=== PATIENT | female | born 1965 | race Native Hawaiian/Other Pacific Islander ===

== ENCOUNTER 2016-06-10 16:19 | Emergency (ER) | payer SELFPAY ==
[~2016-06-10 16:19] MED LIST: ADVA250A INH; ALBU0.08 NEB; CARI1TAB45 PO; GABA800T PO; MSIR15 PO; NYST1000 SWISH-SWAL; PRED-503 PO; VENTAER INH; ZITHTAB PO
[2016-06-10 16:22] VITALS: BP 173/93; PULSE 83; RESP 14; TEMP 98.1; O2SAT 97
[2016-06-11] MEDS ORDERED: PRED-503 PO (16:06)
[2016-06-11] MEDS ORDERED: ERYTOIN10 EACH EYE (16:06)
[2016-06-11] MEDS ORDERED: ALBU0.08 NEB (16:06)
== END 2016-06-10 16:36 | disposition left against medical advice (07) ==
LOC: NED 16:19
DX: Z53.21 Procedure and treatment not carried out due to patient leaving prior to being seen by health care provider (principal)
CPT/HCPCS: 99281

== ENCOUNTER 2016-06-11 02:36 | Emergency (ER) | payer SELFPAY ==
[~2016-06-11] VITALS: Ht 167.6 cm; Wt 100.0 kg
[2016-06-11 02:38] VITALS: BP 182/98; RESP 18; TEMP 97.8; O2SAT 95
[2016-06-11 04:07] LABS: AUTOMATED NEUTROPHIL # 5.9 TH/MM3 (1.8-7.7); BASOPHIL # 0.1 TH/MM3 (0-0.2); BASOPHIL % 0.5 % (0.0-2.0); EOSINOPHIL # 0.1 TH/MM3 (0-0.4); EOSINOPHIL % 1.4 % (0.0-4.0); HEMATOCRIT 48.5 % (35.0-46.0); HEMO FLAGS DIFF FINAL; LYMPH % 29.6 % (9.0-44.0); LYMPHOCYTE # 2.9 TH/MM3 (1.0-4.8); MEAN CELL VOLUME 88.8 FL (80.0-100.0); MEAN CORPUSCULAR HEMOGLOBIN 30.3 PG (27.0-34.0); MEAN CORPUSCULAR HGB CONC 34.1 % (32.0-36.0); MONO % 8.3 % (0.0-8.0); NEUT % 60.2 % (16.0-70.0); PLATELET COUNT 246 TH/MM3 (150-450); RED BLOOD COUNT 5.46 MIL/MM3 (4.00-5.30); RED CELL DISTRIBUTION WIDTH 12.9 % (11.6-17.2); WHITE BLOOD COUNT 9.8 TH/MM3 (4.0-11.0)
--- NOTE | 2016-06-11 04:14 | PD ---
HPI Chief Complaint: Eye Problems/Injury Time Seen by Provider: 04:06 Travel History International Travel<30 days: No Contact w/Intl Traveler<30days: No Traveled to known affect area: No History of Present Illness HPI 51-year-old white female presents to the emergency department requesting a medication refill. She states that she was prescribed erythromycin for conjunctivitis. She is nearly out of her prescription. She still feels that her eyes are red and irritated. She states that she is no longer having discharge. She states that her eyes originally were red, draining mucoid discharge prior to her initiating the erythromycin ointment. She states that she feels that they're not completely resolved. She is requesting a refill. During her initial evaluation by the nursing staff she admittedly stated that she attempted to overdose on medications earlier this week as well as trying to commit suicide by ingesting penicillin which she felt she was allergic to. She states that she has been staying in the room in [facility]. She is paid up until Sunday. She is not sure what she is going to do after that. She is concerned that she may attempt to harm herself again. She states that she does not like where she is in life. She states that she is at risk of being homeless. She has been selling herself to get money to pay for her room. She also states that her family doesn't like her. She is feeling increasingly depressed and suicidal. She denies any homicidal ideation. The patient admits to prior attempts at toxic ingestion but nothing here recently in the last day or 2. She admits to tobacco, alcohol but denies drugs. She also states that she is concerned that she may have been exposed to possibly hepatitis. She states that she had unprotected intercourse. The patient currently denies any fever or chills. No chest pain or shortness of breath. No nausea or vomiting. No abdominal pain. No vaginal complaints. She does complain of red irritated eyes. No drainage now. She denies any active plan on self-harm but is concerned that she is at risk. [facility] Past Medical History Narrative Medical Diabetes, hypertension, fibromyalgia, depression, COPD Asthma: Yes Depression: Yes Cardiovascular Problems: Yes (HTN) Diabetes: Yes (NO MEDS) Patient Takes Glucophage: No Diminished Hearing: Yes ([place]) Fibromyalgia: Yes Hypertension: Yes Respiratory: Yes (BRONCHITIS, ASTHMA) Tetanus Vaccination: < 5 Years ?: Not Ovarian Cysts: Yes (REMOVAL) Past Surgical History Narrative Surgical , partial hysterectomy Section: Yes (X2) Hysterectomy: Yes Social History Alcohol Use: Yes (RARE) Tobacco Use: Yes (<1 PPD ) Substance Use: No Allergies-Medications (Allergen,Severity, Reaction): Coded Allergies: Penicillin (Verified Allergy, Severe, CANT SPEAK OR MOVE AND LOW BP, 05/26) Sulfa (Verified Allergy, Severe, CAN NOT SPEAK, CAN NOT MOVE, LOW BP, 06/11) Reported Meds & Prescriptions Reported Meds & Active Scripts Active Albuterol Neb (Albuterol Sulfate) 2.5 Mg/3 Ml Neb 2.5 Mg NEB Q4HR NEB PRN Zithromax Z-Ramon (Azithromycin) 250 Mg Dspk 250 Mg PO DIRECTED 500 MG (2 tabs) day 1, then 1 tab days 2-5. Nystatin Liq 100,000 unit/ml Susp 5 Ml SWISH-SWAL QID 7 Days Deltasone (Prednisone) 20 Mg Tab 20 Mg PO TID Reported Ventolin Hfa 18 GM Inh (Albuterol Sulfate) 90 Mcg/Act Aer 2 Puff INH Q4-6H PRN Carisoprodol 250 Mg Tab 250 Mg PO DAILY PRN Morphine IR (Morphine Sulfate) 15 Mg Tab 15 Mg PO DAILY PRN Gabapentin 800 Mg Tab 800 Mg PO DAILY Advair Diskus Inh (Fluticasone-Salmeterol Inh) 250-50 Mcg/Blist Aer 1 Puff INH BID Rinse mouth after use. Review of Systems Except as stated in HPI: all other systems reviewed are Neg Physical Exam Narrative GENERAL: Well-nourished, well-developed patient. SKIN: Warm and dry. HEAD: Normocephalic and atraumatic. EYES: No scleral icterus. Positive bilateral injection but no drainage. Patient has heavy mascara on. ENT: No nasal drainage noted. Mucous membranes pink. Airway patent. NECK: Supple, trachea midline. Moves head freely without obvious discomfort. CARDIOVASCULAR: Regular rate and rhythm without murmurs, gallops, or rubs. RESPIRATORY: Breath sounds equal bilaterally. No accessory muscle use. GASTROINTESTINAL: Abdomen soft, non-tender, nondistended. EXTREMITIES: No cyanosis or edema. BACK: Nontender without obvious deformity. No CVA tenderness. NEURO: Patient is alert and oriented. no sensorimotor deficits. Nonfocal. Normal speech. PSYCH: No delusions. No auditory or visual hallucinations. Data Data Last Documented VS Vital Signs Date Time Temp Pulse Resp B/P Pulse Ox O2 Delivery O2 Flow Rate FiO2 06/11/16 02:38 97.8 18 182/98 95 Room Air Orders Complete Blood Count With Diff (06/11/16 03:34) Comprehensive Metabolic Panel (06/11/16 03:34) Drug Screen, Random Urine (06/11/16 03:34) Alcohol (Ethanol) (06/11/16 03:34) Salicylates (Aspirin) (06/11/16 03:34) Tylenol (Acetaminophen) (06/11/16 03:34) Psych Screen (06/11/16 03:34) Labs Laboratory Tests Test 06/11/16 03:40 White Blood Count 9.8 TH/MM3 Red Blood Count 5.46 MIL/MM3 Hemoglobin 16.5 GM/DL Hematocrit 48.5 % Mean Corpuscular Volume 88.8 FL Mean Corpuscular Hemoglobin 30.3 PG Mean Corpuscular Hemoglobin 34.1 % Concent Red Cell Distribution Width 12.9 % Platelet Count 246 TH/MM3 Mean Platelet Volume 8.5 FL Neutrophils (%) (Auto) 60.2 % Lymphocytes (%) (Auto) 29.6 % Monocytes (%) (Auto) 8.3 % Eosinophils (%) (Auto) 1.4 % Basophils (%) (Auto) 0.5 % Neutrophils # (Auto) 5.9 TH/MM3 Lymphocytes # (Auto) 2.9 TH/MM3 Monocytes # (Auto) 0.8 TH/MM3 Eosinophils # (Auto) 0.1 TH/MM3 Basophils # (Auto) 0.1 TH/MM3 CBC Comment DIFF FINAL Differential Comment Sodium Level 139 MEQ/L Potassium Level 3.6 MEQ/L Chloride Level 101 MEQ/L Carbon Dioxide Level 28.4 MEQ/L Anion Gap 10 MEQ/L Blood Urea Nitrogen 10 MG/DL Creatinine 0.78 MG/DL Estimat Glomerular Filtration 78 ML/MIN Rate Random Glucose 248 MG/DL Calcium Level 8.6 MG/DL Total Bilirubin 0.4 MG/DL Aspartate Amino Transf 9 U/L (AST/SGOT) Alanine Aminotransferase 28 U/L (ALT/SGPT) Alkaline Phosphatase 79 U/L Total Protein 6.9 GM/DL Albumin 3.5 GM/DL Salicylates Level 3.3 MG/DL Urine Opiates Screen POS Acetaminophen Level LESS THAN 2.0 MCG/ML Urine Barbiturates Screen NEG Urine Amphetamines Screen NEG Urine Benzodiazepines Screen NEG Urine Cocaine Screen NEG Urine Cannabinoids Screen NEG Ethyl Alcohol Level LESS THAN 3 MG/DL MDM Medical Decision Making Medical Screen Exam Complete: Yes Emergency Medical Condition: Yes Medical Record Reviewed: Yes Interpretation(s) Laboratory Tests Test 06/11/16 03:40 White Blood Count 9.8 TH/MM3 Red Blood Count 5.46 MIL/MM3 Hemoglobin 16.5 GM/DL Hematocrit 48.5 % Mean Corpuscular Volume 88.8 FL Mean Corpuscular Hemoglobin 30.3 PG Mean Corpuscular Hemoglobin 34.1 % Concent Red Cell Distribution Width 12.9 % Platelet Count 246 TH/MM3 Mean Platelet Volume 8.5 FL Neutrophils (%) (Auto) 60.2 % Lymphocytes (%) (Auto) 29.6 % Monocytes (%) (Auto) 8.3 % Eosinophils (%) (Auto) 1.4 % Basophils (%) (Auto) 0.5 % Neutrophils # (Auto) 5.9 TH/MM3 Lymphocytes # (Auto) 2.9 TH/MM3 Monocytes # (Auto) 0.8 TH/MM3 Eosinophils # (Auto) 0.1 TH/MM3 Basophils # (Auto) 0.1 TH/MM3 CBC Comment DIFF FINAL Differential Comment Sodium Level 139 MEQ/L Potassium Level 3.6 MEQ/L Chloride Level 101 MEQ/L Carbon Dioxide Level 28.4 MEQ/L Anion Gap 10 MEQ/L Blood Urea Nitrogen 10 MG/DL Creatinine 0.78 MG/DL Estimat Glomerular Filtration 78 ML/MIN Rate Random Glucose 248 MG/DL Calcium Level 8.6 MG/DL Total Bilirubin 0.4 MG/DL Aspartate Amino Transf 9 U/L (AST/SGOT) Alanine Aminotransferase 28 U/L (ALT/SGPT) Alkaline Phosphatase 79 U/L Total Protein 6.9 GM/DL Albumin 3.5 GM/DL Salicylates Level 3.3 MG/DL Urine Opiates Screen POS Acetaminophen Level LESS THAN 2.0 MCG/ML Urine Barbiturates Screen NEG Urine Amphetamines Screen NEG Urine Benzodiazepines Screen NEG Urine Cocaine Screen NEG Urine Cannabinoids Screen NEG Ethyl Alcohol Level LESS THAN 3 MG/DL Differential Diagnosis MDM: High Differential diagnoses: Schizophrenia, schizoaffective disorder, bipolar, anxiety, depression, adjustment reaction, mood disorder NOS, ODD, depressive disorder NOS, dementia, dementia with agitation, psychosis NOS, substance induced mood disorder, intermittent explosive disorder, Asperger syndrome, infection,electrolyte abnormality, malingering. Narrative Course Mental health screening discussed with the patient. Psychiatric screen ordered. The patient has conjunctivitis. She still has a small amount of erythromycin ointment. She is also had multiple suicide attempts over the past week. She admittedly states that she is depressed and has had thoughts of self-harm. The patient has agreed to stay on a voluntary basis for psychological evaluation. If the patient had any time off some Aleve she'll be placed under Cuevas act. This is depression with SI, conjunctivitis Diagnosis Primary Impression: depression with SI Additional Impression: conjunctivitis Condition: Stable Mariano Cormier Jun 11, 2016 04:14
[2016-06-11 04:17] LABS: AMPHETAMINE, URINE NEG (NEG); BARBITURATES, URINE NEG (NEG); COCAINE, URINE NEG (NEG)
[2016-06-11 04:27] LABS: ALT (GPT) 28 U/L (10-53); ANION GAP 10 MEQ/L (5-15); AST (GOT) 9 U/L (15-37); BICARBONATE 28.4 MEQ/L (21.0-32.0); BLOOD UREA NITROGEN 10 MG/DL (7-18); CHLORIDE 101 MEQ/L (98-107); GLOMERULAR FILTRATION RATE 78 ML/MIN (>89); POTASSIUM 3.6 MEQ/L (3.5-5.1); SODIUM (NA) 139 MEQ/L (136-145)
[2016-06-11 04:29] LABS: ACETAMINOPHEN LESS THAN 2.0 MCG/ML (10.0-30.0); ALKALINE PHOSPHATASE 79 U/L (45-117); TOTAL BILIRUBIN ADULT 0.4 MG/DL (0.2-1.0)
[2016-06-11 07:18] VITALS: BP 170/54; PULSE 98; RESP 16; O2SAT 97
--- NOTE | 2016-06-11 07:52 | PD ---
Physical Exam Time Seen by Provider: 07:48 Narrative Briefly, this is a 51-year-old female who presented to the emergency department requesting a medication refill for conjunctivitis but also admits to worsening depression and suicidal ideations. Patient was already seen by Zenon Cormier PA-C , see his full history of present illness for details. Data Data Last Documented VS Vital Signs Date Time Temp Pulse Resp B/P Pulse Ox O2 Delivery O2 Flow Rate FiO2 06/11/16 07:18 98 16 170/54 97 Room Air 06/11/16 02:38 97.8 Orders Complete Blood Count With Diff (06/11/16 03:34) Comprehensive Metabolic Panel (06/11/16 03:34) Drug Screen, Random Urine (06/11/16 03:34) Alcohol (Ethanol) (06/11/16 03:34) Salicylates (Aspirin) (06/11/16 03:34) Tylenol (Acetaminophen) (06/11/16 03:34) Psych Screen (06/11/16 03:34) Diet Regular Basic (06/11/16 Breakfast) Labs Laboratory Tests Test 06/11/16 03:40 White Blood Count 9.8 TH/MM3 Red Blood Count 5.46 MIL/MM3 Hemoglobin 16.5 GM/DL Hematocrit 48.5 % Mean Corpuscular Volume 88.8 FL Mean Corpuscular Hemoglobin 30.3 PG Mean Corpuscular Hemoglobin 34.1 % Concent Red Cell Distribution Width 12.9 % Platelet Count 246 TH/MM3 Mean Platelet Volume 8.5 FL Neutrophils (%) (Auto) 60.2 % Lymphocytes (%) (Auto) 29.6 % Monocytes (%) (Auto) 8.3 % Eosinophils (%) (Auto) 1.4 % Basophils (%) (Auto) 0.5 % Neutrophils # (Auto) 5.9 TH/MM3 Lymphocytes # (Auto) 2.9 TH/MM3 Monocytes # (Auto) 0.8 TH/MM3 Eosinophils # (Auto) 0.1 TH/MM3 Basophils # (Auto) 0.1 TH/MM3 CBC Comment DIFF FINAL Differential Comment Sodium Level 139 MEQ/L Potassium Level 3.6 MEQ/L Chloride Level 101 MEQ/L Carbon Dioxide Level 28.4 MEQ/L Anion Gap 10 MEQ/L Blood Urea Nitrogen 10 MG/DL Creatinine 0.78 MG/DL Estimat Glomerular Filtration 78 ML/MIN Rate Random Glucose 248 MG/DL Calcium Level 8.6 MG/DL Total Bilirubin 0.4 MG/DL Aspartate Amino Transf 9 U/L (AST/SGOT) Alanine Aminotransferase 28 U/L (ALT/SGPT) Alkaline Phosphatase 79 U/L Total Protein 6.9 GM/DL Albumin 3.5 GM/DL Salicylates Level 3.3 MG/DL Urine Opiates Screen POS Acetaminophen Level LESS THAN 2.0 MCG/ML Urine Barbiturates Screen NEG Urine Amphetamines Screen NEG Urine Benzodiazepines Screen NEG Urine Cocaine Screen NEG Urine Cannabinoids Screen NEG Ethyl Alcohol Level LESS THAN 3 MG/DL MDM Supervised Visit with LANEY: No Narrative Course This patient has had worsening depression due to social issues and the possibility of homelessness. She admits to trying to overdose on morphine about a week ago and trying to take penicillin to cause herself to have anaphylaxis. Initially she agreed to stay for psychiatric evaluation voluntarily. At this point she no longer wants to stay however I feel that she meets Cuevas act criteria with 2 recent suicide attempts and worsening depression. Therefore I placed the patient under Cuevas act. Diagnosis Primary Impression: depression with SI Additional Impression: conjunctivitis Condition: Stable Corinne Alexis Jun 11, 2016 07:52
[2016-06-11] MEDS ORDERED: ACETAMINOPHEN/HYDROcodone 325 MG/5 MG TAB PO ONE (08:00)
[2016-06-11 11:16] VITALS: BP_SYST 132; BP_SYST 160; BP_DIAS 100; BP_DIAS 80; PULSE 88; PULSE 90; RESP 20; TEMP 97.1; TEMP 98.5; O2SAT 100; O2SAT 90
[2016-06-11] MEDS ORDERED: predniSONE 20 MG TAB PO ONE (14:00)
[2016-06-11] MEDS ORDERED: PATIENT OWN MEDICATION PO SCH (14:00)
[2016-06-11] MEDS: RESP: ALBUTEROL 2.5 MG/3 ML NEB (SCH) INH ×3 (14:20→14:50)
[2016-06-11 14:57] VITALS: BP 160/89; PULSE 70; RESP 18; O2SAT 99
[2016-06-11] MEDS ORDERED: ALBU0.08 NEB (16:06)
[2016-06-11] MEDS ORDERED: ERYTOIN10 EACH EYE (16:06)
[2016-06-11] MEDS ORDERED: PRED-503 PO (16:06)
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
== END 2016-06-11 16:54 | disposition home or self-care (01) ==
LOC: NEPA 02:36 → NEPJ 16:54
DX: H10.33 Unspecified acute conjunctivitis, bilateral (principal); F32.9 Major depressive disorder, single episode, unspecified; R45.851 Suicidal ideations
CPT/HCPCS: 80053; 80307; 80329; 85025; 94640; 94664; 99285; J7512; J7613; 80320; G0480

== ENCOUNTER 2016-06-25 04:44 | Emergency (ER) | payer OTHER ==
[~2016-06-25] VITALS: Ht 167.6 cm; Wt 100.0 kg
[~2016-06-25 04:44] MED LIST changes: +ERYTOIN10 EACH EYE; -ZITHTAB PO
[2016-06-25 04:46] VITALS: BP 228/108; PULSE 86; RESP 16; TEMP 97.6; O2SAT 98
[2016-06-25 04:57] VITALS: BP 184/106
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
[2016-06-25 05:26] LABS: BACTERIA, URINE RARE /hpf; BLOOD, URINE TRACE (NEG); COMMENT (UR) CULTURE INDICATED; CULTURE IF INDICATED CULTURE INDICATED; GLUCOSE,URINE 1000 mg/dL (NEG); HYALINE CAST, URINE 1 /lpf (RARE); KETONE, URINE 10 mg/dL (NEG); MUCUS URINE FEW /lpf (OCC); NITRITE,URINE NEG (NEG); PH, URINE 6.5 (5.0-8.5); SQUAMOUS EPITHELIAL CELL URINE 2 /hpf (0-5); URINE COLOR YELLOW (YELLW/STRAW)
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
[2016-06-25] MEDS ORDERED: IBUP-232 PO (06:37)
[2016-06-25] MEDS ORDERED: CIPR-9 PO (06:37)
[2016-06-25 13:01] LABS: CHLAMYDIA PCR NOT DETECTED (NOT DETECT); NEISSERIA PCR NOT DETECTED (NOT DETECT)
== END 2016-06-25 07:55 | disposition home or self-care (01) ==
LOC: NEPE 04:44
DX: S62.617A Displaced fracture of proximal phalanx of left little finger, initial encounter for closed fracture (principal); S50.02XA Contusion of left elbow, initial encounter; N30.00 Acute cystitis without hematuria; B96.20 Unspecified Escherichia coli [E. coli] as the cause of diseases classified elsewhere; I10 Essential (primary) hypertension; E11.9 Type 2 diabetes mellitus without complications; F17.200 Nicotine dependence, unspecified, uncomplicated; H91.92 Unspecified hearing loss, left ear; Z87.39 Personal history of other diseases of the musculoskeletal system and connective tissue; Z87.09 Personal history of other diseases of the respiratory system; Z86.59 Personal history of other mental and behavioral disorders; V49.88XA Car occupant (driver) (passenger) injured in other specified transport accidents, initial encounter; Y92.410 Unspecified street and highway as the place of occurrence of the external cause
CPT/HCPCS: 73080; 73130; 81001; 87077; 87086; 87186; 87491; 87591; 99283

== ENCOUNTER 2016-07-11 03:59 | Emergency (ER) | payer SELFPAY ==
[~2016-07-11] VITALS: Ht 167.6 cm; Wt 100.0 kg
[~2016-07-11 03:59] MED LIST changes: -ADVA250A INH; -ALBU0.08 NEB; -CARI1TAB45 PO; +CIPR-9 PO; -ERYTOIN10 EACH EYE; +IBUP-232 PO; -NYST1000 SWISH-SWAL; -PRED-503 PO; -VENTAER INH
[2016-07-11 04:03] VITALS: BP 163/85; PULSE 84; RESP 16; TEMP 97.1; O2SAT 97
== END 2016-07-11 04:42 | disposition left against medical advice (07) ==
LOC: NED 03:59
DX: R07.81 Pleurodynia (principal)
CPT/HCPCS: 99281

== ENCOUNTER 2016-07-13 05:22 | Emergency (ER) | payer SELFPAY ==
[~2016-07-13] VITALS: Ht 167.6 cm; Wt 101.0 kg
[2016-07-13 05:30] VITALS: BP 185/104; PULSE 75; RESP 18; TEMP 95.5; O2SAT 97
--- NOTE | 2016-07-13 05:40 | PD ---
HPI Chief Complaint: Fall Time Seen by Provider: 05:40 Travel History International Travel<30 days: No Contact w/Intl Traveler<30days: No Traveled to known affect area: No History of Present Illness HPI 51 year-old female presents to emergency department for evaluation a left rib pain. Patient states that 4 days ago she tripped and fell striking her ribs against the counter. She states pain has persisted and she would like to know if they are broken. Denies any other chest pain. No shortness of breath. No fever or chills. No other symptoms to report. PFSH Past Medical History Asthma: Yes Depression: Yes Cardiovascular Problems: Yes (HTN) Diabetes: Yes Diminished Hearing: No ([place] ) Fibromyalgia: Yes Hypertension: Yes Respiratory: Yes (ASTHMA) ?: Not Menopausal: Yes Ovarian Cysts: Yes (REMOVAL) Tubal Ligation: Yes Past Surgical History Section: Yes (X2) Hysterectomy: Yes Tonsillectomy: Yes Social History Alcohol Use: No Tobacco Use: Yes (1PPD ) Substance Use: No Allergies-Medications (Allergen,Severity, Reaction): Coded Allergies: Penicillin (Verified Allergy, Severe, CANT SPEAK OR MOVE AND LOW BP, ) Sulfa (Verified Allergy, Severe, CAN NOT SPEAK, CAN NOT MOVE, LOW BP, 07/13) Reported Meds & Prescriptions Reported Meds & Active Scripts Active Ibuprofen 800 Mg Tab 800 Mg PO Q8H PRN Review of Systems Except as stated in HPI: all other systems reviewed are Neg Physical Exam Narrative GENERAL: Well-nourished, well-developed female patient, ambulatory and in no acute distress SKIN: Warm and dry. HEAD: Normocephalic. Atraumatic EYES: No scleral icterus. No injection or drainage. NECK: Supple, trachea midline. No JVD or lymphadenopathy. CARDIOVASCULAR: Regular rate and rhythm without murmurs, gallops, or rubs. RESPIRATORY: Breath sounds equal bilaterally. No accessory muscle use. Tenderness elicited palpation of the left anterior lateral rib cage. No crepitus. No deformity. Even respirations. GASTROINTESTINAL: Abdomen soft, non-tender, nondistended. MUSCULOSKELETAL: No cyanosis, or edema. BACK: Nontender without obvious deformity. No CVA tenderness. Data Data Last Documented VS Vital Signs Date Time Temp Pulse Resp B/P Pulse Ox O2 Delivery O2 Flow Rate FiO2 07/13/16 05:30 95.5 75 18 185/104 97 Orders Chest, Single Ap (07/13/16 ) Ketorolac Inj (Toradol Inj) (07/13/16 05:45) MDM Medical Decision Making Medical Screen Exam Complete: Yes Emergency Medical Condition: Yes Medical Record Reviewed: Yes Differential Diagnosis Rib contusion versus fracture versus pneumothorax versus musculoskeletal pain Narrative Course 51 year-old female presents to the emergency department for evaluation left- sided rib pain. Patient appears without distress. There is no crepitus with palpation of the thoracic wall. Patient is hypertensive here in the emergency department. She has not been on her medication for over a month. She has no symptoms associated with this. X-ray imaging is without acute cardiopulmonary disease. Patient is discharged with pain control. She is encouraged to follow- up with the primary care provider and return immediately with any acute worsening of symptoms. Diagnosis Primary Impression: Contusion of rib on left side Qualified Code: S20.212A - Contusion of rib on left side, initial encounter Additional Impression: Hypertension Referrals: Primary Care Physician Patient Instructions: General Instructions, Rib Contusion (ED) Additional Instructions: It is important that you take deep breaths Ice and/or warm moist heat may help to alleviate symptoms Follow-up with primary care provider Return immediately to the emergency department with any acute worsening of symptoms Med/Other Pt SpecificInfo: Prescription(s) given Scripts Ibuprofen 800 Mg [id number] Mg PO Q8H PRN (Pain/Inflammation) #30 TAB Ref 0 Prov:Angie Preciado 07/13/16 Disposition: 01 DISCHARGE HOME Condition: Stable Angie Preciado Jul 13, 2016 05:40
[2016-07-13] MEDS ORDERED: KETOROLAC TROMETHAMINE 60 MG/2 ML (IM) VIAL IM ONE (05:45)
--- NOTE | 2016-07-13 06:13 | RADRPT ---
EXAM DATE/TIME: 07/13/2016 05:48 [facility] COMPARISON: CHEST SINGLE AP, May 26, 2016, 6:30. INDICATIONS : Left chest pain after patient fell into dresser this morning MEDICAL HISTORY : None. SURGICAL HISTORY : None. ENCOUNTER: Initial ACUITY: 1 day PAIN SCORE: 9/10 LOCATION: Left chest FINDINGS: A single view of the chest demonstrates the lungs to be symmetrically aerated without evidence of mas s, infiltrate or effusion. The cardiomediastinal contours are unremarkable. Osseous structures are intact. CONCLUSION: 1. No acute cardiopulmonary disease. Modesto Norton MD on July 13, 2016 at 6:11 Board Certified Radiologist. This report was verified electronically.
[2016-07-13] MEDS ORDERED: IBUP800T23 PO (06:22)
== END 2016-07-13 06:36 | disposition home or self-care (01) ==
LOC: NEPB 05:22
DX: S20.212A Contusion of left front wall of thorax, initial encounter (principal); I10 Essential (primary) hypertension; E11.9 Type 2 diabetes mellitus without complications; H91.92 Unspecified hearing loss, left ear; F17.200 Nicotine dependence, unspecified, uncomplicated; Z87.09 Personal history of other diseases of the respiratory system; Z86.59 Personal history of other mental and behavioral disorders; Z86.79 Personal history of other diseases of the circulatory system; Z87.39 Personal history of other diseases of the musculoskeletal system and connective tissue; W01.190A Fall on same level from slipping, tripping and stumbling with subsequent striking against furniture, initial encounter
CPT/HCPCS: 71010; 96372; 99283; J1885